=== PATIENT | female | born 1945 | race Caucasian/White ===

== ENCOUNTER 2016-03-23 03:02 | Emergency (ER) | payer MEDICARE, MEDICAID | END 2016-03-23 06:06 | disposition home or self-care (01) | LOC: ER 03:02 | DX: N30.00 Acute cystitis without hematuria (principal); S36.69XA Other injury of rectum, initial encounter; Y04.2XXA Assault by strike against or bumped into by another person, initial encounter; Y92.009 Unspecified place in unspecified non-institutional (private) residence as the place of occurrence of the external cause; Z79.899 Other long term (current) drug therapy; F31.9 Bipolar disorder, unspecified; Z86.73 Personal history of transient ischemic attack (TIA), and cerebral infarction without residual deficits; G20 Parkinson's disease; F41.1 Generalized anxiety disorder | CPT/HCPCS: 81001; 87088 ==